=== PATIENT | female | born 1950 | race Caucasian/White ===

== ENCOUNTER → 2017-11-25 | Outpatient (CLI) | payer OTHER, BC ==
[~2017-11-25] MED LIST: ADULT LOW DOSE81 M1 PO; ALTACE10 MG PO; ERGOCALCIF50000 UNIT PO; EXTRA STRENGTH500 M1 PO; FENOFIBRATE48 MG PO; GABAPENTIN100 MG PO; KLOR-CON-EF 2525 MEQ PO; LISINOPRIL10 MG PO; MICRO-K10 ME2 PO; POTASSIUM CHLOR8 ME3 PO; SYNTHROID25 MCG PO
== END | disposition home or self-care (01) ==
DX: M17.12 Unilateral primary osteoarthritis, left knee (principal); R26.2 Difficulty in walking, not elsewhere classified; M25.562 Pain in left knee; M25.662 Stiffness of left knee, not elsewhere classified; M62.81 Muscle weakness (generalized); Z74.1 Need for assistance with personal care
CPT/HCPCS: 97161 GP; 97165 GO; 97530 GP; 97535 GO; G8978 GP; G8979 GP; G8980 GP; G8987 GO; G8988 GO; G8989 GO

== ENCOUNTER 2017-12-14 21:10 | Inpatient (IN) | payer OTHER, BC ==
[~2017-12-14] VITALS: Ht 172.7 cm; Wt 113.9 kg
[~2017-12-14 21:10] MED LIST changes: +ARIMIDEX1 MG PO; -LISINOPRIL10 MG PO; +ZESTRIL30 MG PO
[2017-12-15] MEDS ORDERED: MICRO-K10 ME2 PO (09:40)
[2017-12-15 09:45] VITALS: BP 173/79
[2017-12-15 14:11] LABS: HEMATOCRIT 39.1 % (36.0-46.0); HEMOGLOBIN 12.5 G/DL (11.9-15.5); MCH 29.5 PG (29.0-34.0); MCV 92.2 FL (83-99); PLATELET COUNT 236 K/uL (156-360); RBC DIS.WIDTH-CV 14.5 % (11.8-14.6); RBC DIS.WIDTH-SD 48.8 % (39-53); RED BLOOD COUNT 4.24 M/uL (3.80-5.20); WHITE BLOOD COUNT 8.8 K/uL (4.1-10.2)
[2017-12-15 14:53] VITALS: BP 130/64
[2017-12-15 20:06] VITALS: BP 157/81
[2017-12-16 00:10] VITALS: BP 150/63
[2017-12-16 04:06] VITALS: BP 125/60
[2017-12-16 06:47] LABS: HEMATOCRIT 36.2 % (36.0-46.0); HEMOGLOBIN 12.2 G/DL (11.9-15.5); MCV 90.7 FL (83-99)
[2017-12-16 07:15] LABS: CHLORIDE 102 MEQ/L (99-109); CREATININE 0.7 MG/DL (0.6-1.3); GFR ESTIMATE (CALCULATED) > 59 mL/min/; GLUCOSE 136 mg/dL (70-99); SODIUM 137 MEQ/L (136-147); UREA NITROGEN (BUN) 15 mg/dL (9-23)
[2017-12-16 08:12] VITALS: BP 142/63
[2017-12-16 11:40] VITALS: BP 120/57
[2017-12-16 15:42] VITALS: BP 122/74
[2017-12-16 19:37] VITALS: BP 141/67
[2017-12-17 00:12] VITALS: BP 133/60
[2017-12-17 04:08] VITALS: BP 133/63
[2017-12-17 06:16] LABS: HEMATOCRIT 33.5 % (36.0-46.0); MCV 91.5 FL (83-99)
[2017-12-17] MEDS ORDERED: SENNA PLUS TAB1 EACH PO (08:13)
[2017-12-17] MEDS ORDERED: CELECOXIB200 MG PO (08:15)
[2017-12-17] MEDS ORDERED: LOVENOX40 MG/0.4 SC (08:15)
[2017-12-17] MEDS ORDERED: ENDOCET 5-3251 EACH PO (08:15)
[2017-12-17 12:17] VITALS: BP 131/61
== END 2017-12-17 14:40 | DRG 470 ==
LOC: ENRESERV 21:10 → 3WEST 12-15 09:07 → 2SOUTH 12-15 09:07 → 3WEST 12-15 14:17
PROVIDERS: Orthopaedic Surgery
PROC: 0SRD0J9 Replacement of Left Knee Joint with Synthetic Substitute, Cemented, Open Approach (ICD-10-PCS; principal; 2017-12-15)
DX: M17.12 Unilateral primary osteoarthritis, left knee (principal); I10 Essential (primary) hypertension; E03.9 Hypothyroidism, unspecified; Z85.3 Personal history of malignant neoplasm of breast; Z90.13 Acquired absence of bilateral breasts and nipples; Z89.412 Acquired absence of left great toe; Z92.21 Personal history of antineoplastic chemotherapy; Z92.3 Personal history of irradiation
CPT/HCPCS: 73560; 80048; 85014; 85018; 85027; 97530 GO; 97530 GP; C1713; J0690; J1100; J1170; J1650; J2250; J2405; J2795; J3010; J7050